=== PATIENT | female | born 1970 | race Caucasian/White ===

== ENCOUNTER 2016-11-08 19:25 | Emergency (ER) | payer MEDICARE, MEDICAID ==
[~2016-11-08] VITALS: Ht 154.9 cm; Wt 90.0 kg
[~2016-11-08 19:25] MED LIST: ACETTAB3 OR; AMOXICILLIN500 MG OR; BACTRIM DS1 TAB PO; BENADRYL 50MG C50 MG PO; CLARITIN10 M1 PO; CLONAZEPAM0.5 MG PO; FLEXERIL OR; FLUOXETINE20 MG PO; LORTAB 5 OR; LORTAB 7.5 OR; MEDDOSEPAK OR; MEDDOSEPAK PO; NAPROSYN500 MG OR; NAPROSYN500 MG PO; NO; NO HOME MEDS; PEPCID20 MG PO; PREVACID30 M3 PO; ROBITUSSIN AC OR; TRAMADOL HCL50 MG PO; TRAZODONE100 MG PO; ULTRAM50 M1 OR; ULTRAM50 M1 PO; ULTRAM50 MG OR; ZPAK PO
[2016-11-08] MEDS ORDERED: GABAPENTIN300 M2 PO (19:41)
[2016-11-08] MEDS ORDERED: VESICARE5 MG PO (19:41)
[2016-11-08] MEDS ORDERED: ACETAZOLAMIDE500 MG PO (19:42)
[2016-11-08 20:25] LABS: HEMOGLOBIN 12.1 g/dl (12.0-16.0); IMMATURE GRANULOCYTES 0.4 % (0.0-1.0); MEAN CELL VOLUME 84.1 fL CALC (80.0-100.0); MEAN CORPUSCULAR HGB 27.5 pG CALC (26.0-32.0); MEAN CORPUSCULAR HGB CONC 32.7 g/L CALC (32.0-36.0); NEUT# 5.18 thou/uL (2.00-7.15); RED BLOOD COUNT 4.4 mill/uL (4.20-5.60); RED CELL DISTRI WIDTH 13.6 % (11.5-15.5)
[2016-11-08 20:32] LABS: ALBUMIN 3.9 g/dL (3.2-5.0); ALKALINE PHOSPHATASE 76 u/l (38-126); AMYLASE 69 u/l (30-110); ANION GAP 14 (6-22 (CALC)); BILIRUBIN, TOTAL 0.3 mg/dL (0.0-1.4); BUN 18 mg/dL (7-17); BUN/CREATININE RATIO 17 (12-20 (CALC)); CARBON DIOXIDE 21 mmol/l (22-30); CHLORIDE 111 mmol/l (95-108); GFR 60 ML/MIN (>=60 (CALC)); GFR FOR AFR.AMER. > 60 ML/MIN (>=60 (CALC)); GLUCOSE 96 mg/dL (65-105); LIPASE 68 u/l (23-300); POTASSIUM 3.7 mmol/l (3.5-5.1); SGOT/AST 29 u/l (14-36); SGPT/ALT 29 u/l (9-52); SODIUM 142 mmol/l (137-146); TOTAL PROTEIN 7.3 g/dL (6.3-8.2)
[2016-11-08 20:44] LABS: MYOGLOBIN 15 ng/mL (0 - 62)
[2016-11-08 21:33] LABS: URINE BILIRUBIN - DIPSTICK NEGATIVE (NEGATIVE); URINE BLOOD DIPSTICK NEGATIVE (NEGATIVE); URINE CLARITY SLIGHT CLOUDY; URINE COLOR YELLOW; URINE GLUCOSE - DIPSTICK NEGATIVE (NEGATIVE); URINE KETONE NEGATIVE (NEGATIVE); URINE LEUK ESTERASE NEGATIVE (NEGATIVE); URINE NITRITE - DIPSTICK NEGATIVE (Negative); URINE PROTEIN - DIPSTICK NEGATIVE (NEG-TRACE); URINE UROBILINOGEN - DIPSTICK 0.2 E.U./dL (0.2)
[2016-11-08] MEDS ORDERED: PREVACID30 M3 PO (23:24)
[2016-11-08 23:30] VITALS: BP 110/55
== END 2016-11-08 23:45 | disposition home or self-care (01) ==
LOC: ED 19:25
PROVIDERS: Emergency Medicine
DX: R07.9 Chest pain, unspecified (principal); G43.909 Migraine, unspecified, not intractable, without status migrainosus; Z85.820 Personal history of malignant melanoma of skin; Z79.899 Other long term (current) drug therapy

== ENCOUNTER 2017-04-03 11:44 | Day surgery (SDC) | payer MEDICARE, MEDICAID ==
[~2017-04-03 11:44] MED LIST changes: +ACETAZOLAMIDE500 MG PO; +GABAPENTIN300 M2 PO; +LORAZEPAM0.5 MG PO; +MYRBETRIQ50 MG PO; +VESICARE5 MG PO
[2017-04-03 14:40] VITALS: BP 114/59
== END 2017-04-03 14:30 | disposition home or self-care (01) ==
LOC: ENDO 11:44 → ORM 12:30 → ENDO 14:25
PROVIDERS: ATTEND Internal Medicine Gastroenterology
PROC: 0DB78ZX Excision of Stomach, Pylorus, Via Natural or Artificial Opening Endoscopic, Diagnostic (ICD-10-PCS; principal; 2017-04-03)
PROC: 0DB58ZX Excision of Esophagus, Via Natural or Artificial Opening Endoscopic, Diagnostic (ICD-10-PCS; 2017-04-03)
PROC: 0D758ZZ Dilation of Esophagus, Via Natural or Artificial Opening Endoscopic (ICD-10-PCS; 2017-04-03)
DX: K21.9 Gastro-esophageal reflux disease without esophagitis (principal); R13.10 Dysphagia, unspecified; R10.11 Right upper quadrant pain; K29.50 Unspecified chronic gastritis without bleeding; K22.8 Other specified diseases of esophagus; K44.9 Diaphragmatic hernia without obstruction or gangrene; Z85.820 Personal history of malignant melanoma of skin

== ENCOUNTER 2017-05-03 13:34 | Emergency (ER) | payer MEDICARE, MEDICAID ==
[~2017-05-03] VITALS: Ht 154.9 cm; Wt 104.0 kg
[2017-05-03] MEDS ORDERED: CEPHALEXIN500 MG PO (14:32)
[2017-05-03 14:39] VITALS: BP 113/65
== END 2017-05-03 14:39 | disposition home or self-care (01) ==
LOC: ED 13:34
DX: T63.481A Toxic effect of venom of other arthropod, accidental (unintentional), initial encounter (principal); L03.115 Cellulitis of right lower limb; M19.90 Unspecified osteoarthritis, unspecified site; F32.9 Major depressive disorder, single episode, unspecified; F41.9 Anxiety disorder, unspecified; Z85.820 Personal history of malignant melanoma of skin

== ENCOUNTER 2017-06-07 22:18 | Emergency (ER) | payer MEDICARE, MEDICAID ==
[~2017-06-07] VITALS: Ht 154.9 cm; Wt 108.8 kg
[~2017-06-07 22:18] MED LIST changes: +CEPHALEXIN500 MG PO
[2017-06-07 22:37] LABS: HEMATOCRIT 39.7 % (37.0-47.0); HEMOGLOBIN 12.9 g/dl (12.0-16.0); IMMATURE GRANULOCYTES 0.5 % (0.0-1.0); MEAN CORPUSCULAR HGB 27.6 pG CALC (26.0-32.0); MEAN CORPUSCULAR HGB CONC 32.5 g/L CALC (32.0-36.0); NEUT# 5.1 thou/uL (2.00-7.15); RED BLOOD COUNT 4.67 mill/uL (4.20-5.60); RED CELL DISTRI WIDTH 13.3 % (11.5-15.5)
[2017-06-07 22:52] LABS: ALBUMIN 4.4 g/dL (3.2-5.0); ALKALINE PHOSPHATASE 90 u/l (38-126); AMYLASE 82 u/l (30-110); ANION GAP 15 (6-22 (CALC)); BILIRUBIN, TOTAL 0.6 mg/dL (0.0-1.4); BUN 21 mg/dL (7-17); BUN/CREATININE RATIO 22 (12-20 (CALC)); CALCIUM 9.1 mg/dL (8.4-10.2); CARBON DIOXIDE 24 mmol/l (22-30); CHLORIDE 107 mmol/l (95-108); GFR 60 ML/MIN (>=60 (CALC)); GFR FOR AFR.AMER. > 60 ML/MIN (>=60 (CALC)); GLUCOSE 140 mg/dL (65-105); LIPASE 86 u/l (23-300); SGOT/AST 21 u/l (14-36); SGPT/ALT 32 u/l (9-52); SODIUM 143 mmol/l (137-146)
[2017-06-07 23:00] LABS: MYOGLOBIN 20 ng/mL (0 - 62)
[2017-06-07 23:30] LABS: URINE BILIRUBIN - DIPSTICK NEGATIVE (NEGATIVE); URINE BLOOD DIPSTICK NEGATIVE (NEGATIVE); URINE CLARITY CLEAR; URINE COLOR YELLOW; URINE GLUCOSE - DIPSTICK NEGATIVE (NEGATIVE); URINE KETONE NEGATIVE (NEGATIVE); URINE LEUK ESTERASE NEGATIVE (NEGATIVE); URINE NITRITE - DIPSTICK NEGATIVE (Negative); URINE PH 5.5 (4.5-8.0); URINE PROTEIN - DIPSTICK NEGATIVE (NEG-TRACE); URINE SPECIFIC GRAVITY >=1.030; URINE UROBILINOGEN - DIPSTICK 0.2 E.U./dL (0.2)
[2017-06-08] MEDS ORDERED: ZOFRAN ODT4 MG PO (00:33)
[2017-06-08] MEDS ORDERED: PREVACID30 M3 PO (00:33)
[2017-06-08] MEDS ORDERED: ULTRAM50 M1 PO (00:33)
[2017-06-08 01:00] VITALS: BP 132/67
== END 2017-06-08 01:10 | disposition home or self-care (01) ==
LOC: ED 22:18
PROVIDERS: Emergency Medicine
DX: R10.11 Right upper quadrant pain (principal); R10.13 Epigastric pain; K80.80 Other cholelithiasis without obstruction; M19.90 Unspecified osteoarthritis, unspecified site; F32.9 Major depressive disorder, single episode, unspecified; F41.9 Anxiety disorder, unspecified; G62.9 Polyneuropathy, unspecified
CPT/HCPCS: Q9967; S0164

== ENCOUNTER 2017-06-14 00:26 | Inpatient (IN) | payer MEDICARE, MEDICAID ==
[~2017-06-14] VITALS: Ht 154.9 cm; Wt 106.2 kg
[~2017-06-14 00:26] MED LIST changes: +ZOFRAN ODT4 MG PO
[2017-06-14 01:06] LABS: HEMATOCRIT 36.6 % (37.0-47.0); HEMOGLOBIN 12.2 g/dl (12.0-16.0); IMMATURE GRANULOCYTES 0.3 % (0.0-1.0); MEAN CELL VOLUME 83.6 fL CALC (80.0-100.0); MEAN CORPUSCULAR HGB 27.9 pG CALC (26.0-32.0); MEAN CORPUSCULAR HGB CONC 33.3 g/L CALC (32.0-36.0); NEUT# 5.61 thou/uL (2.00-7.15); PLATELET COUNT 201 thou/uL (130-400); RED BLOOD COUNT 4.38 mill/uL (4.20-5.60)
[2017-06-14 01:19] LABS: ALKALINE PHOSPHATASE 69 u/l (38-126); AMYLASE 42 u/l (30-110); ANION GAP 15 (6-22 (CALC)); BILIRUBIN, TOTAL 0.5 mg/dL (0.0-1.4); BUN 19 mg/dL (7-17); BUN/CREATININE RATIO 19 (12-20 (CALC)); CARBON DIOXIDE 26 mmol/l (22-30); CHLORIDE 106 mmol/l (95-108); GFR 60 ML/MIN (>=60 (CALC)); GFR FOR AFR.AMER. > 60 ML/MIN (>=60 (CALC)); GLUCOSE 116 mg/dL (65-105); LIPASE 37 u/l (23-300); SGOT/AST 16 u/l (14-36); SGPT/ALT 27 u/l (9-52); SODIUM 143 mmol/l (137-146); TOTAL PROTEIN 6.8 g/dL (6.3-8.2)
[2017-06-14 07:48] VITALS: BP 103/46
[2017-06-14 16:39] VITALS: BP 124/85
[2017-06-14 18:00] VITALS: BP 111/59
[2017-06-15] VITALS (10 sets, daily range): BP systolic 101–140; BP diastolic 48–76
[2017-06-15 09:10] LABS: CHOLESTEROL HDL RATIO 5.4 (<4.4 (CALC)); MAGNESIUM 1.9 mg/dL (1.6-2.3)
== END 2017-06-15 18:28 | disposition home or self-care (01) | DRG 419 ==
LOC: ED 00:26 → ED-I 01:02 → ED 01:02 → ED-I 05:06 → ED 05:16 → MS2 05:17
PROVIDERS: Emergency Medicine; Nurse Practitioner Family; ADMIT Internal Medicine; ATTEND Internal Medicine
PROC: 0FT44ZZ Resection of Gallbladder, Percutaneous Endoscopic Approach (ICD-10-PCS; principal; 2017-06-15)
PROC: BF001ZZ Plain Radiography of Bile Ducts using Low Osmolar Contrast (ICD-10-PCS; 2017-06-15)
DX: K80.00 Calculus of gallbladder with acute cholecystitis without obstruction (principal); G62.9 Polyneuropathy, unspecified; F32.9 Major depressive disorder, single episode, unspecified; F41.9 Anxiety disorder, unspecified; M19.90 Unspecified osteoarthritis, unspecified site; E78.5 Hyperlipidemia, unspecified; Z85.820 Personal history of malignant melanoma of skin
CPT/HCPCS: J2710; Q9967; S0164

== ENCOUNTER 2018-04-19 06:07 | Day surgery (SDC) | payer MEDICARE, MEDICAID ==
[~2018-04-19] VITALS: Ht 152.4 cm; Wt 113.4 kg
[~2018-04-19 06:07] MED LIST changes: +DULOXETINE HCL30 MG PO; +FENOFIBRATE145 MG PO; +PANTOPRAZOLE SO40 M1 PO; +RANITIDINE150 MG PO; +RIZATRIPTAN BEN10 M1 PO; +TOPIRAMATE200 MG PO; +VITAMIN D31000 UNI1 PO
[2018-04-19] MEDS ORDERED: PERCOCET 10/31 COMBO PO (10:39)
[2018-04-19 10:58] VITALS: BP 148/74
== END 2018-04-19 11:15 | disposition home or self-care (01) ==
LOC: ORM 06:07
PROVIDERS: ATTEND Orthopaedic Surgery
PROC: 0RNJ4ZZ Release Right Shoulder Joint, Percutaneous Endoscopic Approach (ICD-10-PCS; principal; 2018-04-19)
DX: M75.51 Bursitis of right shoulder (principal); M75.81 Other shoulder lesions, right shoulder

== ENCOUNTER → 2018-10-21 | Outpatient (REF) | payer MEDICARE, MEDICAID ==
[~2018-10-21] MED LIST changes: +PERCOCET 10/31 COMBO PO
[2018-10-21 12:15] LABS: HEMATOCRIT 39.7 % (37.0-47.0); HEMOGLOBIN 12.7 g/dl (12.0-16.0); IMMATURE GRANULOCYTES 0.3 % (0.0-5.0); MEAN CELL VOLUME 83.4 fL CALC (80.0-100.0); MEAN CORPUSCULAR HGB 26.7 pG CALC (26.0-32.0); NEUT# 3.8 thou/uL (2.00-7.15); RED BLOOD COUNT 4.76 mill/uL (4.20-5.60); RED CELL DISTRI WIDTH 14.1 % (11.5-15.5)
[2018-10-21 12:31] LABS: ALBUMIN 4.2 g/dL (3.2-5.0); ALKALINE PHOSPHATASE 73 u/l (38-126); ANION GAP 14 (6-22 (CALC)); BILIRUBIN, TOTAL 0.6 mg/dL (0.0-1.4); BUN 19 mg/dL (7-17); BUN/CREATININE RATIO 18 (12-20 (CALC)); CALCULATED LDLCHOLESTEROL 130 mg/dL (62-129 (CALC)); CARBON DIOXIDE 23 mmol/l (22-30); CHLORIDE 106 mmol/l (95-108); CHOLESTEROL HDL RATIO 6.4 (<4.4 (CALC)); GFR 60 ML/MIN (>=60 (CALC)); GFR FOR AFR.AMER. > 60 ML/MIN (>=60 (CALC)); HDL CHOLESTEROL 31 mg/dL (>=40); POTASSIUM 3.8 mmol/l (3.5-5.1); SGOT/AST 18 u/l (14-36); TOTAL CHOLESTEROL 200 mg/dl (0-199); TOTAL PROTEIN 7.4 g/dL (6.3-8.2); TOTAL TRIGLYCERIDES 198 mg/dl (30-149); VLDL CHOLESTROL 40 mg/dl (1-41 (CALC))
[2018-10-21 12:32] LABS: SODIUM 139 mmol/l (137-146)
== END | disposition home or self-care (01) ==
LOC: LAB 11:03
PROVIDERS: ATTEND Physician Assistant Medical
DX: N83.209 Unspecified ovarian cyst, unspecified side (principal); N39.46 Mixed incontinence; G62.0 Drug-induced polyneuropathy; N39.44 Nocturnal enuresis; Z68.42 Body mass index [BMI] 45.0-49.9, adult; C43.9 Malignant melanoma of skin, unspecified; D64.9 Anemia, unspecified; E78.5 Hyperlipidemia, unspecified

== ENCOUNTER 2019-07-27 16:08 | Emergency (ER) | payer MEDICARE, MEDICAID ==
[~2019-07-27] VITALS: Ht 152.4 cm; Wt 96.4 kg
[2019-07-27 16:47] LABS: HEMATOCRIT 36.8 % (37.0-47.0); HEMOGLOBIN 11.8 g/dl (12.0-16.0); IMMATURE GRANULOCYTES 0.2 % (0.0-5.0); MEAN CELL VOLUME 84.8 fL CALC (80.0-100.0); MEAN CORPUSCULAR HGB 27.2 pG CALC (26.0-32.0); MEAN CORPUSCULAR HGB CONC 32.1 g/L CALC (32.0-36.0); NEUT# 3.52 thou/uL (2.00-7.15); RED BLOOD COUNT 4.34 mill/uL (4.20-5.60); RED CELL DISTRI WIDTH 13.7 % (11.5-15.5)
[2019-07-27 17:09] LABS: ANION GAP 12 (6-22 (CALC)); BUN 23 mg/dL (7-17); BUN/CREATININE RATIO 35 (12-20 (CALC)); CARBON DIOXIDE 27 mmol/l (22-30); CHLORIDE 105 mmol/l (95-108); CREATININE 0.7 mg/dL (0.5-1.0); GFR > 60 ML/MIN (>=60 (CALC)); GFR FOR AFR.AMER. > 60 ML/MIN (>=60 (CALC)); SODIUM 140 mmol/l (137-146)
[2019-07-27] MEDS ORDERED: AIMOVIG140 MG/ML IJ (18:47)
[2019-07-27 19:27] VITALS: BP 122/78
== END 2019-07-27 19:27 | disposition home or self-care (01) ==
LOC: ED 16:08
PROVIDERS: Family Medicine
DX: R51 Headache (principal); R07.9 Chest pain, unspecified

== ENCOUNTER 2022-04-15 13:58 | Emergency (ER) | payer MEDICARE, MEDICAID ==
[~2022-04-15] VITALS: Ht 152.4 cm; Wt 112.0 kg
[~2022-04-15 13:58] MED LIST changes: +AIMOVIG140 MG/ML IJ
[2022-04-15] MEDS ORDERED: TRAZODONE50 MG PO (14:35)
[2022-04-15 15:12] LABS: HEMATOCRIT 39.6 % (37.0-47.0); HEMOGLOBIN 13.1 g/dl (12.0-16.0); IMMATURE GRANULOCYTES 0.2 % (0.0-5.0); MEAN CORPUSCULAR HGB 26.1 pG CALC (26.0-32.0); MEAN CORPUSCULAR HGB CONC 33.1 g/dL CAL (32.0-36.0); NEUT# 4.31 thou/uL (2.00-7.15); RED BLOOD COUNT 5.02 mill/uL (4.20-5.60); RED CELL DISTRI WIDTH 14.2 % (11.5-15.5)
[2022-04-15 15:17] LABS: MEAN CELL VOLUME 78.9 fL CALC (80.0-100.0)
[2022-04-15 15:18] LABS: ALBUMIN 4.5 g/dL (3.2-5.0); ANION GAP 13 (6-22 (CALC)); BILIRUBIN, TOTAL 0.6 mg/dL (0.0-1.4); BUN 17 mg/dL (7-17); BUN/CREATININE RATIO 19 (12-20 (CALC)); CARBON DIOXIDE 26 mmol/l (22-30); CHLORIDE 106 mmol/l (95-108); CREATININE 0.9 mg/dL (0.5-1.0); GFR FOR AFR.AMER. > 60 ML/MIN (>=60 (CALC)); GFR OTHER RACES > 60 ML/MIN (>=60 (CALC)); POTASSIUM 3.7 mmol/l (3.5-5.1); SGOT/AST 25 u/l (14-36); SODIUM 141 mmol/l (137-146); TOTAL PROTEIN 8.3 g/dL (6.3-8.2)
[2022-04-15 15:28] LABS: ALKALINE PHOSPHATASE 106 u/l (38-126)
[2022-04-15 15:29] LABS: MYOGLOBIN 22 ng/mL (0 - 62)
[2022-04-15] MEDS ORDERED: KEFLEX500 MG PO (16:53)
[2022-04-15 16:57] VITALS: BP 147/90
== END 2022-04-15 17:03 | disposition home or self-care (01) ==
LOC: ED 13:58
PROVIDERS: Nurse Practitioner
DX: J02.9 Acute pharyngitis, unspecified (principal)

== ENCOUNTER 2023-01-03 13:13 | Emergency (ER) | payer MEDICARE, MEDICAID ==
[~2023-01-03] VITALS: Ht 152.4 cm; Wt 88.0 kg
[~2023-01-03 13:13] MED LIST changes: +KEFLEX500 MG PO; +TRAZODONE50 MG PO
[2023-01-03 13:22] VITALS: BP 133/78
[2023-01-03 13:31] VITALS: BP 101/81
[2023-01-03 14:01] VITALS: BP 149/77
[2023-01-03 14:57] LABS: BASO% 0.8 % (0-3); EOS% 2.4 % (0-8); HEMATOCRIT 38.1 % (37.0-47.0); HEMOGLOBIN 12.3 g/dl (12.0-16.0); LYMPH% 29.4 % (15-41); MEAN CELL VOLUME 81.4 fL CALC (80.0-100.0); MEAN CORPUSCULAR HGB 26.3 pG CALC (26.0-32.0); MEAN CORPUSCULAR HGB CONC 32.3 g/dL CAL (32.0-36.0); MONO% 6.8 % (2-13); NEUT# 3.83 thou/uL (2.00-7.15); NEUT% 60.6 % (42-76); RED BLOOD COUNT 4.68 mill/uL (4.20-5.60); RED CELL DISTRI WIDTH 13.9 % (11.5-15.5)
[2023-01-03 15:15] LABS: ALBUMIN 4.1 g/dL (3.2-5.0); ALKALINE PHOSPHATASE 74 u/l (38-126); ANION GAP 12 (6-22 (CALC)); BILIRUBIN, TOTAL 0.4 mg/dL (0.02-1.3); BUN 19 mg/dL (7-17); BUN/CREATININE RATIO 17 (12-20 (CALC)); CARBON DIOXIDE 29 mmol/l (22-30); CHLORIDE 106 mmol/l (95-108); CREATININE 1.1 mg/dL (0.5-1.0); GFR FOR AFR.AMER. > 60 ML/MIN (>=60 (CALC)); GFR OTHER RACES 53 ML/MIN (>=60 (CALC)); POTASSIUM 4.2 mmol/l (3.5-5.1); SGOT/AST 19 u/l (14-36); SODIUM 143 mmol/l (137-146); TOTAL PROTEIN 6.8 g/dL (6.3-8.2)
[2023-01-03 16:53] LABS: URINE BILIRUBIN - DIPSTICK NEGATIVE (NEGATIVE); URINE BLOOD DIPSTICK NEGATIVE (NEGATIVE); URINE COLOR YELLOW; URINE GLUCOSE - DIPSTICK NEGATIVE (NEGATIVE); URINE KETONE NEGATIVE (NEGATIVE); URINE LEUK ESTERASE NEGATIVE (NEGATIVE); URINE PROTEIN - DIPSTICK TRACE mg/dL (NEG-TRACE)
[2023-01-03 16:54] LABS: URINE NITRITE - DIPSTICK NEGATIVE (Negative)
[2023-01-03] MEDS ORDERED: ZOFRAN4 MG/TAB PO (18:25)
[2023-01-03 18:36] VITALS: BP 101/81
== END 2023-01-03 18:40 | disposition home or self-care (01) ==
LOC: ED 13:13
PROVIDERS: Family Medicine
DX: R11.0 Nausea (principal); K08.409 Partial loss of teeth, unspecified cause, unspecified class

== ENCOUNTER 2023-01-29 19:48 | Inpatient (IN) | payer MEDICARE, MEDICAID ==
[2023-01-29] VITALS (17 sets, daily range): BP systolic 112–177; BP diastolic 65–104
[~2023-01-29] VITALS: Ht 152.4 cm; Wt 89.8 kg
[~2023-01-29 19:48] MED LIST changes: +ZOFRAN4 MG/TAB PO
[2023-01-29] MEDS ORDERED: ATORVASTATIN CA10 MG PO (20:19)
[2023-01-29] MEDS ORDERED: HYDROXYZ HCL25 MG PO (20:20)
[2023-01-29] MEDS ORDERED: BUPROPION HCL150 MG PO (20:21)
[2023-01-29 20:34] LABS: BASO% 0.7 % (0-3); HEMATOCRIT 39.6 % (37.0-47.0); HEMOGLOBIN 12.8 g/dl (12.0-16.0); IMMATURE GRANULOCYTES 0.3 % (0.0-5.0); LYMPH% 25.7 % (15-41); MEAN CELL VOLUME 82.2 fL CALC (80.0-100.0); MEAN CORPUSCULAR HGB 26.6 pG CALC (26.0-32.0); MEAN CORPUSCULAR HGB CONC 32.3 g/dL CAL (32.0-36.0); NEUT# 4.95 thou/uL (2.00-7.15); NEUT% 64.3 % (42-76); RED BLOOD COUNT 4.82 mill/uL (4.20-5.60); RED CELL DISTRI WIDTH 14.3 % (11.5-15.5)
[2023-01-29 20:49] LABS: ALBUMIN 4.4 g/dL (3.2-5.0); ALKALINE PHOSPHATASE 107 u/l (38-126); AMYLASE 71 u/l (30-110); ANION GAP 14 (6-22 (CALC)); BILIRUBIN, TOTAL 0.4 mg/dL (0.02-1.3); BUN 15 mg/dL (7-17); BUN/CREATININE RATIO 14 (12-20 (CALC)); CARBON DIOXIDE 26 mmol/l (22-30); CHLORIDE 104 mmol/l (95-108); CREATININE 1.1 mg/dL (0.5-1.0); GFR FOR AFR.AMER. > 60 ML/MIN (>=60 (CALC)); GFR OTHER RACES 53 ML/MIN (>=60 (CALC)); LIPASE 41 u/l (23-300); POTASSIUM 3.6 mmol/l (3.5-5.1); SODIUM 140 mmol/l (137-146); TOTAL PROTEIN 7.4 g/dL (6.3-8.2)
[2023-01-29 20:50] LABS: SGOT/AST 35 u/l (14-36)
[2023-01-30] VITALS (24 sets, daily range): BP systolic 100–159; BP diastolic 56–102
[2023-01-30 06:05] LABS: BASO% 0.5 % (0-3); EOS% 3.6 % (0-8); HEMATOCRIT 38.9 % (37.0-47.0); HEMOGLOBIN 12.3 g/dl (12.0-16.0); IMMATURE GRANULOCYTES 0.1 % (0.0-5.0); LYMPH% 22.1 % (15-41); MEAN CELL VOLUME 84.4 fL CALC (80.0-100.0); MEAN CORPUSCULAR HGB 26.7 pG CALC (26.0-32.0); MEAN CORPUSCULAR HGB CONC 31.6 g/dL CAL (32.0-36.0); MONO% 6.8 % (2-13); NEUT# 5.04 thou/uL (2.00-7.15); NEUT% 66.9 % (42-76); RED BLOOD COUNT 4.61 mill/uL (4.20-5.60); RED CELL DISTRI WIDTH 14.3 % (11.5-15.5)
[2023-01-30 06:24] LABS: ALBUMIN 4.1 g/dL (3.2-5.0); ALKALINE PHOSPHATASE 105 u/l (38-126); ANION GAP 12 (6-22 (CALC)); BILIRUBIN, TOTAL 0.5 mg/dL (0.02-1.3); BUN 15 mg/dL (7-17); BUN/CREATININE RATIO 15 (12-20 (CALC)); CARBON DIOXIDE 29 mmol/l (22-30); CHLORIDE 103 mmol/l (95-108); GFR FOR AFR.AMER. > 60 ML/MIN (>=60 (CALC)); GFR OTHER RACES 59 ML/MIN (>=60 (CALC)); SGOT/AST 43 u/l (14-36); SODIUM 140 mmol/l (137-146); TOTAL PROTEIN 6.8 g/dL (6.3-8.2)
[2023-01-31] VITALS (7 sets, daily range): BP systolic 109–153; BP diastolic 57–86
[2023-01-31 05:07] LABS: BASO% 0.3 % (0-3); EOS% 0.3 % (0-8); HEMATOCRIT 36.9 % (37.0-47.0); HEMOGLOBIN 11.6 g/dl (12.0-16.0); IMMATURE GRANULOCYTES 0.1 % (0.0-5.0); LYMPH% 7.6 % (15-41); MEAN CELL VOLUME 83.9 fL CALC (80.0-100.0); MEAN CORPUSCULAR HGB 26.4 pG CALC (26.0-32.0); MEAN CORPUSCULAR HGB CONC 31.4 g/dL CAL (32.0-36.0); MONO% 8.6 % (2-13); NEUT# 6.2 thou/uL (2.00-7.15); NEUT% 83.1 % (42-76); RED BLOOD COUNT 4.4 mill/uL (4.20-5.60); RED CELL DISTRI WIDTH 14.3 % (11.5-15.5)
[2023-01-31 05:28] LABS: ALKALINE PHOSPHATASE 111 u/l (38-126); ANION GAP 12 (6-22 (CALC)); BILIRUBIN, TOTAL 0.6 mg/dL (0.02-1.3); BUN 19 mg/dL (7-17); BUN/CREATININE RATIO 24 (12-20 (CALC)); CARBON DIOXIDE 25 mmol/l (22-30); CHLORIDE 104 mmol/l (95-108); CREATININE 0.8 mg/dL (0.5-1.0); GFR FOR AFR.AMER. > 60 ML/MIN (>=60 (CALC)); GFR OTHER RACES > 60 ML/MIN (>=60 (CALC)); POTASSIUM 4.6 mmol/l (3.5-5.1); SGOT/AST 65 u/l (14-36); SODIUM 136 mmol/l (137-146); TOTAL PROTEIN 5.6 g/dL (6.3-8.2)
[2023-01-31 05:41] LABS: ALBUMIN 3.2 g/dL (3.2-5.0)
[2023-02-01 03:56] VITALS: BP 142/85
[2023-02-01 04:00] VITALS: BP 142/85
[2023-02-01 07:11] VITALS: BP 149/87
[2023-02-01 15:17] VITALS: BP 121/83
[2023-02-01 19:34] VITALS: BP 120/77
[2023-02-02 04:47] VITALS: BP 127/70
[2023-02-02 06:01] LABS: BASO% 0.5 % (0-3); EOS% 5.8 % (0-8); IMMATURE GRANULOCYTES 0.2 % (0.0-5.0); LYMPH% 18.9 % (15-41); MEAN CELL VOLUME 85.4 fL CALC (80.0-100.0); MEAN CORPUSCULAR HGB 26.6 pG CALC (26.0-32.0); MEAN CORPUSCULAR HGB CONC 31.1 g/dL CAL (32.0-36.0); MONO% 11.8 % (2-13); NEUT# 2.72 thou/uL (2.00-7.15); NEUT% 62.8 % (42-76); RED BLOOD COUNT 3.5 mill/uL (4.20-5.60); RED CELL DISTRI WIDTH 14.4 % (11.5-15.5)
[2023-02-02 06:16] LABS: ANION GAP 10 (6-22 (CALC)); BUN 10 mg/dL (7-17); BUN/CREATININE RATIO 12 (12-20 (CALC)); CARBON DIOXIDE 27 mmol/l (22-30); CHLORIDE 105 mmol/l (95-108); CREATININE 0.8 mg/dL (0.5-1.0); GFR FOR AFR.AMER. > 60 ML/MIN (>=60 (CALC)); GFR OTHER RACES > 60 ML/MIN (>=60 (CALC)); SODIUM 138 mmol/l (137-146)
[2023-02-02 06:17] LABS: HEMATOCRIT 29.9 % (37.0-47.0); HEMOGLOBIN 9.3 g/dl (12.0-16.0)
[2023-02-02 07:06] VITALS: BP 118/70
[2023-02-02 07:07] VITALS: BP 118/70
[2023-02-02 20:06] VITALS: BP 137/78
[2023-02-03 04:18] VITALS: BP 139/83
[2023-02-03 07:08] VITALS: BP 139/83
[2023-02-03 15:00] VITALS: BP 145/67
[2023-02-03 19:06] VITALS: BP 140/80
[2023-02-04 04:57] VITALS: BP 151/76
[2023-02-04 05:48] LABS: BASO% 0.4 % (0-3); EOS% 3.6 % (0-8); HEMATOCRIT 33.1 % (37.0-47.0); HEMOGLOBIN 10.8 g/dl (12.0-16.0); IMMATURE GRANULOCYTES 0.4 % (0.0-5.0); LYMPH% 10.1 % (15-41); MEAN CELL VOLUME 82.1 fL CALC (80.0-100.0); MEAN CORPUSCULAR HGB 26.8 pG CALC (26.0-32.0); MEAN CORPUSCULAR HGB CONC 32.6 g/dL CAL (32.0-36.0); MONO% 10.5 % (2-13); NEUT# 5.21 thou/uL (2.00-7.15); RED BLOOD COUNT 4.03 mill/uL (4.20-5.60); RED CELL DISTRI WIDTH 13.7 % (11.5-15.5)
[2023-02-04 06:11] LABS: ANION GAP 17 (6-22 (CALC)); BUN 3 mg/dL (7-17); BUN/CREATININE RATIO 5 (12-20 (CALC)); CARBON DIOXIDE 26 mmol/l (22-30); CHLORIDE 99 mmol/l (95-108); CREATININE 0.7 mg/dL (0.5-1.0); GFR FOR AFR.AMER. > 60 ML/MIN (>=60 (CALC)); GFR OTHER RACES > 60 ML/MIN (>=60 (CALC)); POTASSIUM 3.7 mmol/l (3.5-5.1); SODIUM 138 mmol/l (137-146)
[2023-02-04 07:02] VITALS: BP 143/84
[2023-02-04 13:17] VITALS: BP 91/74
[2023-02-04 16:15] VITALS: BP 147/78
[2023-02-04 18:55] VITALS: BP 147/77
[2023-02-04 19:00] VITALS: BP 147/77
[2023-02-05 03:44] VITALS: BP 119/67
[2023-02-05 04:00] VITALS: BP 119/67
[2023-02-05 06:51] VITALS: BP 132/74
[2023-02-05 16:10] VITALS: BP 141/69
[2023-02-05 20:28] VITALS: BP 142/80
[2023-02-06 05:42] VITALS: BP 125/72
[2023-02-06 07:43] VITALS: BP 140/78
[2023-02-06 16:59] VITALS: BP 131/80
[2023-02-06 21:00] VITALS: BP 136/78
[2023-02-07 08:25] VITALS: BP 144/92
[2023-02-07 08:31] VITALS: BP 144/92
[2023-02-07] MEDS ORDERED: TRAMADOL HCL50 MG PO (09:56)
== END 2023-02-07 11:14 | disposition home or self-care (01) | DRG 337 ==
LOC: ED 19:48 → ED-I 22:18 → ED 22:31 → MS2 22:32
PROVIDERS: Emergency Medicine; ADMIT Surgery; ATTEND Surgery
PROC: 0DNV0ZZ Release Mesentery, Open Approach (ICD-10-PCS; principal; 2023-01-30)
PROC: 0DN80ZZ Release Small Intestine, Open Approach (ICD-10-PCS; 2023-01-30)
PROC: 0DB80ZX Excision of Small Intestine, Open Approach, Diagnostic (ICD-10-PCS; 2023-01-30)
PROC: 0DNU4ZZ Release Omentum, Percutaneous Endoscopic Approach (ICD-10-PCS; 2023-01-30)
DX: K56.50 Intestinal adhesions [bands], unspecified as to partial versus complete obstruction (principal); G62.9 Polyneuropathy, unspecified; E78.5 Hyperlipidemia, unspecified; Z98.84 Bariatric surgery status; Z90.49 Acquired absence of other specified parts of digestive tract; Z90.710 Acquired absence of both cervix and uterus; Z85.820 Personal history of malignant melanoma of skin; Z20.822 Contact with and (suspected) exposure to COVID-19
CPT/HCPCS: J0131; J0690; J1100; J2710; Q9967; S0164

== ENCOUNTER 2023-02-15 15:14 | Emergency (ER) | payer MEDICARE, MEDICAID ==
[2023-02-15] VITALS (8 sets, daily range): BP systolic 111–121; BP diastolic 78–86
[~2023-02-15] VITALS: Ht 167.6 cm; Wt 79.3 kg
[~2023-02-15 15:14] MED LIST changes: +ATORVASTATIN CA10 MG PO; +BUPROPION HCL150 MG PO; +HYDROXYZ HCL25 MG PO; +LINZESS290 MCG PO
[2023-02-15 17:09] LABS: BASO% 0.7 % (0-3); EOS% 3.8 % (0-8); HEMATOCRIT 42.9 % (37.0-47.0); HEMOGLOBIN 13.8 g/dl (12.0-16.0); IMMATURE GRANULOCYTES 0.4 % (0.0-5.0); LYMPH% 17.8 % (15-41); MEAN CELL VOLUME 81.3 fL CALC (80.0-100.0); MEAN CORPUSCULAR HGB 26.1 pG CALC (26.0-32.0); MEAN CORPUSCULAR HGB CONC 32.2 g/dL CAL (32.0-36.0); NEUT# 9.5 thou/uL (2.00-7.15); NEUT% 70.3 % (42-76); RED BLOOD COUNT 5.28 mill/uL (4.20-5.60)
[2023-02-15 17:21] LABS: ALBUMIN 4.1 g/dL (3.2-5.0); ALKALINE PHOSPHATASE 113 u/l (38-126); AMYLASE 50 u/l (30-110); ANION GAP 20 (6-22 (CALC)); BILIRUBIN, TOTAL 0.9 mg/dL (0.02-1.3); BUN 17 mg/dL (7-17); BUN/CREATININE RATIO 18 (12-20 (CALC)); CARBON DIOXIDE 24 mmol/l (22-30); CHLORIDE 100 mmol/l (95-108); GFR FOR AFR.AMER. > 60 ML/MIN (>=60 (CALC)); GFR OTHER RACES 59 ML/MIN (>=60 (CALC)); LIPASE 22 u/l (23-300); POTASSIUM 3.2 mmol/l (3.5-5.1); SGOT/AST 24 u/l (14-36); SODIUM 140 mmol/l (137-146); TOTAL PROTEIN 7.7 g/dL (6.3-8.2)
[2023-02-15] MEDS ORDERED: ONDANSETRON4 MG PO (20:40)
== END 2023-02-15 20:50 | disposition home or self-care (01) ==
LOC: ED 15:14
PROVIDERS: Nurse Practitioner Family
DX: R11.2 Nausea with vomiting, unspecified (principal); R10.9 Unspecified abdominal pain; K21.9 Gastro-esophageal reflux disease without esophagitis; Z98.84 Bariatric surgery status; Z90.49 Acquired absence of other specified parts of digestive tract; Z98.890 Other specified postprocedural states
CPT/HCPCS: Q9967